=== PATIENT | male | born 1990 | race Caucasian/White ===

== ENCOUNTER 2022-05-28 00:54 | Emergency (ER) | payer SELFPAY ==
[~2022-05-28] VITALS: Ht 180.3 cm; Wt 97.7 kg
[2022-05-28 00:56] VITALS: BP 152/90; PULSE 72; TEMP 97.6
[2022-05-28] MEDS ORDERED: PREDNISONE20 MG PO (01:12)
== END 2022-05-28 01:37 | disposition home or self-care (01) ==
LOC: COL.ER 00:54
DX: L23.7 Allergic contact dermatitis due to plants, except food (principal)
CPT/HCPCS: J1200; J7512